=== PATIENT | male | born 1955 | race Caucasian/White ===

== ENCOUNTER → 2020-03-16 20:45 | Outpatient (CLI) | payer OTHER | END | disposition home or self-care (01) | LOC: D.LAB 20:45 | PROVIDERS: ATTEND Orthopaedic Surgery | DX: M19.012 Primary osteoarthritis, left shoulder (principal) ==

== ENCOUNTER → 2020-03-19 12:36 | Outpatient (CLI) | payer OTHER | END | disposition home or self-care (01) | LOC: D.MRI 12:36 | PROVIDERS: ATTEND Nurse Practitioner Family | DX: M25.511 Pain in right shoulder (principal) ==

== ENCOUNTER 2020-03-30 10:33 | Inpatient (IN) | payer MEDICARE ==
[~2020-03-30] VITALS: Ht 182.9 cm; Wt 125.0 kg
[2020-04-01] MEDS ORDERED: ASPIRIN81 MG PO (10:43)
[2020-04-01 11:42] LABS: ANION GAP 7.8 mmol/L (8-16); CALCIUM 9.2 mg/dL (8.5-10.1); CARBON DIOXIDE 27.7 mmol/L (21.0-32.0); CREATININE - SERUM 1.1 mg/dL (0.6-1.3); POTASSIUM - SERUM 4.5 mmol/L (3.5-5.1)
[2020-04-01 11:54] LABS: APTT 26.3 SECONDS (22.8-39.4); INR 0.86 (0.85-1.17); PROTIME 11.7 SECONDS (11.6-15.0)
[2020-04-01 12:06] LABS: BASOPHILS 0.4 % (0-2); EOSINOPHILS 4.2 % (0-7); HEMATOCRIT 45.7 % (42.0-54.0); HEMOGLOBIN 14.9 g/dL (13.5-17.5); IMMATURE GRANULOCYTES 0.2 % (0-5); LYMPHOCYTES 35.4 % (15-50); MCH 29.2 pg (26.0-34.0); MCHC 32.6 g/dL (31.0-37.0); MCV 89.4 fL (80.0-100.0); MEAN PLATELET VOLUME 9.4 fL (7.4-10.4); MONOCYTES 9.3 % (2-11); NEUTROPHILS 50.5 % (40-80); PLATELET COUNT 201 10x3/uL (130-400); RBC 5.11 10x6/uL (4.20-6.10); RDW 12.8 % (11.5-14.5)
[2020-04-01 12:21] LABS: BILIRUBIN NEGATIVE (NEGATIVE); KETONE NEGATIVE (NEGATIVE); NITRITE NEGATIVE (NEGATIVE); UROBILINOGEN NORMAL (NORMAL)
[2020-04-05 06:18] VITALS: BP 136/75; BMI 37.4
--- NOTE | 2020-04-05 09:28 | NUR ---
THROUGH TRAFFIC KEPT TO A MINIMUM. HIBACLENS AND ALCOHOL USED TO CLEAN BEFORE PREPPING. STERILE GOWNED AND GLOVED TO PREP ENTIRE SHOULDER DOWN TO FINGERS ON LEFT ARM.
--- NOTE | 2020-04-05 11:30 | NUR ---
REC'D FROM RECOVERY AWAKE AND ALERT. RESP EVEN AND UNLABORED WITH NO DISTRESS NOTED. DRESSING CLEAN DRY INTACT WITH ICE PACK NOTED TO SHOULDER IN SLING. CAN VOICE NEEDS AND WANTS. AND CL IN REACH AT BEDSIDE.
[2020-04-05 11:36] VITALS: BP 129/82
[2020-04-05 17:37] VITALS: BP 117/72
[2020-04-05 22:03] VITALS: BP 143/80
[2020-04-06] VITALS: BP 118/70
--- NOTE | 2020-04-06 01:36 | NUR ---
PATIENT RESTING WITH EYES CLOSED AND UNLABORED RESPIRATIONS. NO SIGNS OR SYMPTOMS OF DISTRESS AT THIS TIME. CALL LIGHT CLOSE TO PATIENT. CPOC.
--- NOTE | 2020-04-06 02:37 | NUR ---
ADMINISTERED TORADOL PER ORDER FOR BREAKTHROUGH PAIN RATING 5/10. DENIES FURTHER NEEDS AT THIS TIME. CALL LIGHT CLOSE. CPOC.
[2020-04-06 04:00] VITALS: BP 146/84
[2020-04-06 05:51] LABS: HEMATOCRIT 41.8 % (42.0-54.0); HEMOGLOBIN 13.5 g/dL (13.5-17.5); MCH 28.7 pg (26.0-34.0); MCHC 32.3 g/dL (31.0-37.0); MCV 88.9 fL (80.0-100.0); MEAN PLATELET VOLUME 9.4 fL (7.4-10.4); RBC 4.7 10x6/uL (4.20-6.10); RDW 12.8 % (11.5-14.5); WBC 11.2 10x3/uL (4.8-10.8)
--- NOTE | 2020-04-06 07:30 | NUR ---
REC'D IN BED AWAKE ERICKA ALERT. RESP EVEN AND UNLABORED WITH NO DISTRESS NOTED. CAN EXPRESS NEEDS AND WANTS. NO C/O NOTED OR VOICED. DRESSING CLEAN DRY AND INTACT TO LEFT SHOULDER. ASSESSMENT COMPLETED. C/L IN REACH AT BEDSIDE.
[2020-04-06] MEDS ORDERED: HYDROCODON-ACE1 EA10 PO (08:36)
--- NOTE | 2020-04-06 09:47 | NUR ---
WAS MEDICATED OXY AT THIS TIME FOR C/O PAIN RATING 7/10 ON PAIN SCALE.
[2020-04-06 10:00] VITALS: Ht 182.9 cm; Wt 125.0 kg
[2020-04-06 11:03] VITALS: BP 120/72
--- NOTE | 2020-04-06 11:20 | NUR ---
DC HOME AT THIS TIME WITH ALL PERSONAL BELONGINGS. DRESSING CHANGED TO LEFT SHOULDER. VOICES UNDERSTANDING OF DC INSTRUCTION. STABLE CONDITION UPON DEPARTURE.
== END 2020-04-06 11:23 | disposition home or self-care (01) | DRG 483 ==
LOC: D.SDCHOLD 04-05 05:37 → D.MS 04-05 05:37 → D.SDCHOLD 04-05 07:30 → D.MS 04-05 11:01
PROVIDERS: ADMIT Orthopaedic Surgery; ATTEND Orthopaedic Surgery
PROC: 0RRK00Z Replacement of Left Shoulder Joint with Reverse Ball and Socket Synthetic Substitute, Open Approach (ICD-10-PCS; principal; 2020-04-05 08:00)
DX: M75.122 Complete rotator cuff tear or rupture of left shoulder, not specified as traumatic (principal); Z87.891 Personal history of nicotine dependence